=== PATIENT | female | born 1970 | race Hispanic/Latino ===

== ENCOUNTER 2017-12-14 13:56 | Emergency (ER) | payer OTHER, SELFPAY ==
[2017-12-14 14:25] LABS: APPEARANCE,URINE Clear (CLEAR); BILIRUBIN,URINE Negative (NEGATIVE); COLOR,URINE Yellow (YELLOW); GLUCOSE, URINE (UA) Negative (NEGATIVE); KETONES,URINE Negative (NEGATIVE); LEUKOCYTE ESTERASE ,URINE Negative (NEGATIVE); NITRATE,URINE Negative (NEGATIVE); OCCULT BLOOD,URINE Negative (NEGATIVE); PH,URINE 5.5 (5.0-8.0); PROTEIN,URINE Negative (NEGATIVE)
[2017-12-14 14:32] LABS: EOSINOPHILS % (AUTO) 2.2 % (0.0-8.0); HEMATOCRIT 37.4 % (36-48); LYMPHOCYTES % (AUTO) 30.1 % (21.0-51.0); MEAN CORPUSCULAR HEMOGLOBIN 28.7 pg (27.0-33.0); MEAN CORPUSCULAR HGB CONC 33.4 g/dL (32.0-36.0); MEAN CORPUSCULAR VOLUME 85.9 fL (79-99); MONOCYTES % (AUTO) 7.2 % (3.0-13.0); NEUTROPHILS % (AUTO) 59.5 % (40.0-77.0); PLATELET COUNT (AUTO) 244 K/uL (130-400); RED BLOOD CELL COUNT(AUTO) 4.36 MIL/uL (4.00-5.50); RED CELL DISTRIBUTION WIDTH 13.5 % (11.0-15.5); WHITE BLOOD COUNT (AUTO) 7.4 K/uL (4.8-10.8)
[2017-12-14 14:39] LABS: CREATININE 0.6 mg/dL (0.5-1.5); POTASSIUM 3.4 mmol/L (3.5-5.1)
[2017-12-14 14:44] LABS: ALBUMIN 3.3 g/dL (3.5-5.0); BILIRUBIN,TOTAL 0.2 mg/dL (0.2-1.0); TOTAL PROTEIN, SERUM 7.1 g/dL (6.0-8.3)
[2017-12-14] MEDS ORDERED: KETOROLAC TROMETHAMINE 30MG/ML ONE (16:09)
== END 2017-12-14 18:47 | disposition home or self-care (01) ==
LOC: EDH 13:56
DX: M54.5 Low back pain (principal); K59.00 Constipation, unspecified; Z90.710 Acquired absence of both cervix and uterus; Z87.442 Personal history of urinary calculi
CPT/HCPCS: 36415; 74176; 76856; 80053; 81003; 85025; 96374; 99285; J1885

== ENCOUNTER 2020-01-18 11:05 | Emergency (ER) | payer OTHER, SELFPAY ==
[2020-01-18] MEDS ORDERED: ASPIRIN 325 MG TABLET ONE (12:17)
[2020-01-18 12:27] LABS: BASOPHILS % (AUTO) 0.5 % (0.0-5.0); EOSINOPHILS % (AUTO) 0.6 % (0.0-8.0); HEMATOCRIT 43.2 % (36-48); LYMPHOCYTES % (AUTO) 13.7 % (21.0-51.0); MEAN CORPUSCULAR HEMOGLOBIN 28.2 pg (27.0-33.0); MEAN CORPUSCULAR HGB CONC 32.9 g/dL (32.0-36.0); MEAN CORPUSCULAR VOLUME 85.9 fL (79-99); MONOCYTES % (AUTO) 7.3 % (3.0-13.0); NEUTROPHILS % (AUTO) 77.3 % (40.0-77.0); PLATELET COUNT (AUTO) 237 K/uL (130-400); RED BLOOD CELL COUNT(AUTO) 5.03 MIL/uL (4.00-5.50); RED CELL DISTRIBUTION WIDTH 12.8 % (11.0-15.5); WHITE BLOOD COUNT (AUTO) 12.8 K/uL (4.8-10.8)
[2020-01-18 12:31] LABS: HCG,QUAL RESULT NEGATIVE (NEGATIVE)
[2020-01-18 12:39] LABS: AMPHET/METH SCREEN,URINE NEGATIVE (NEGATIVE); BARBITURATE SCREEN, URINE NEGATIVE (NEGATIVE); BENZODIAZEPINES SCREEN,URINE NEGATIVE (NEGATIVE); CANNABINOID SCREEN,URINE NEGATIVE (NEGATIVE); COCAINE SCREEN,URINE NEGATIVE (NEGATIVE); OPIATE SCREEN,URINE NEGATIVE (NEGATIVE); PHENCYCLIDINE SCREEN,URINE NEGATIVE (NEGATIVE)
[2020-01-18 12:41] LABS: CREATININE 0.8 mg/dL (0.5-1.5); POTASSIUM 3.6 mmol/L (3.5-5.1)
[2020-01-18 12:45] LABS: ALBUMIN 2.5 g/dL (3.5-5.0); BILIRUBIN,TOTAL 0.2 mg/dL (0.2-1.0); TOTAL PROTEIN, SERUM 5.4 g/dL (6.0-8.3)
[2020-01-18] MEDS ORDERED: KETOROLAC TROMETHAMINE 30MG/ML ONE (13:43)
== END 2020-01-18 15:11 | disposition home or self-care (01) ==
LOC: EDH 11:05
DX: R07.89 Other chest pain (principal); M54.6 Pain in thoracic spine; J02.9 Acute pharyngitis, unspecified; R05 Cough; Z90.710 Acquired absence of both cervix and uterus
CPT/HCPCS: 36415; 71045; 80053; 80305; 81025; 82550; 84484; 85025; 87804 ×2; 93005; 96374; 99285; J1885

== ENCOUNTER 2022-09-11 17:14 | Emergency (ER) | payer OTHER ==
[~2022-09-11] VITALS: Ht 149.9 cm; Wt 86.2 kg
[2022-09-11 18:35] LABS: APPEARANCE,URINE CLEAR (CLEAR); BILIRUBIN,URINE NEGATIVE (NEGATIVE); COLOR,URINE YELLOW (YELLOW); GLUCOSE, URINE (UA) NEGATIVE (NEGATIVE); KETONES,URINE NEGATIVE (NEGATIVE); LEUKOCYTE ESTERASE ,URINE NEGATIVE Leu/uL (NEGATIVE); NITRATE,URINE NEGATIVE (NEGATIVE); OCCULT BLOOD,URINE NEGATIVE (NEGATIVE); PH,URINE 5.5 (5.0-8.0); PROTEIN,URINE 10 mg/dL (NEGATIVE)
[2022-09-11 18:39] LABS: MUCUS,URINE MOD LPF (None Seen); SQUAMOUS EPITHELIAL CELL,UR RARE /HPF (0-2)
[2022-09-11 19:13] LABS: CREATININE 0.7 mg/dL (0.5-1.5); POTASSIUM 3.5 mmol/L (3.5-5.1)
[2022-09-11 19:14] LABS: BASOPHILS % (AUTO) 0.6 % (0.0-5.0); EOSINOPHILS % (AUTO) 1.4 % (0.0-8.0); HEMATOCRIT 37.9 % (36-48); LYMPHOCYTES % (AUTO) 16.6 % (21.0-51.0); MEAN CORPUSCULAR HEMOGLOBIN 28.9 pg (27.0-33.0); MEAN CORPUSCULAR HGB CONC 33.2 g/dL (32.0-36.0); MEAN CORPUSCULAR VOLUME 86.9 fL (79-99); NEUTROPHILS % (AUTO) 73.2 % (40.0-77.0); PLATELET COUNT (AUTO) 248 K/uL (130-400); RED BLOOD CELL COUNT(AUTO) 4.36 MIL/uL (4.00-5.50); RED CELL DISTRIBUTION WIDTH 12.6 % (11.0-15.5); WHITE BLOOD COUNT (AUTO) 8.8 K/uL (4.8-10.8)
[2022-09-11 19:19] LABS: ALBUMIN 2.8 g/dL (3.5-5.0); TOTAL PROTEIN, SERUM 6.1 g/dL (6.0-8.3)
[2022-09-11] MEDS ORDERED: GABA300C PO (20:35)
[2022-09-11 20:43] VITALS: BP 137/94
[2022-09-11] MEDS ORDERED: IBUPROFEN 800 MG TAB PO ONE (21:00)
== END 2022-09-11 21:04 | disposition home or self-care (01) ==
LOC: EDH 17:14
DX: M54.12 Radiculopathy, cervical region (principal); Z90.49 Acquired absence of other specified parts of digestive tract
CPT/HCPCS: 36415; 70450; 72125; 80053; 81001; 85025; 93005

== ENCOUNTER 2024-05-06 08:32 | Emergency (ER) | payer SELFPAY ==
[~2024-05-06] VITALS: Ht 149.9 cm; Wt 96.2 kg
[~2024-05-06 08:32] MED LIST: GABA300C PO
[2024-05-06 09:29] LABS: BASOPHILS # (AUTO) 0.07 K/uL (0.00-0.20); BASOPHILS % (AUTO) 0.8 % (0.0-5.0); EOSINOPHILS # (AUTO) 0.16 K/uL (0.00-0.70); EOSINOPHILS % (AUTO) 1.8 % (0.0-8.0); HEMATOCRIT 40.3 % (36-48); IMMATURE GRANULOCYTE ABSOLUTE 0.06 K/uL (0-1); LYMPHOCYTES # (AUTO) 1.3 K/uL (1.0-4.8); LYMPHOCYTES % (AUTO) 15.4 % (21.0-51.0); MEAN CORPUSCULAR HEMOGLOBIN 27.5 pg (27.0-33.0); MEAN CORPUSCULAR HGB CONC 31.8 g/dL (32.0-36.0); MEAN CORPUSCULAR VOLUME 86.7 fL (79-99); MONOCYTES # (AUTO) 0.7 K/uL (0.1-1.0); MONOCYTES % (AUTO) 7.6 % (3.0-13.0); NEUTROPHILS # (AUTO) 6.4 K/uL (1.8-7.7); NEUTROPHILS % (AUTO) 73.7 % (40.0-77.0); PLATELET COUNT (AUTO) 320 K/uL (130-400); RED BLOOD CELL COUNT(AUTO) 4.65 MIL/uL (4.00-5.50); RED CELL DISTRIBUTION WIDTH 13.3 % (11.0-15.5); WHITE BLOOD COUNT (AUTO) 8.7 K/uL (4.8-10.8)
[2024-05-06 09:37] LABS: CREATININE 0.7 mg/dL (0.5-1.0); POTASSIUM 4.1 mmol/L (3.5-5.1)
[2024-05-06 09:42] LABS: ALBUMIN 2.9 g/dL (3.5-5.0); BILIRUBIN,TOTAL 0.2 mg/dL (0.2-1.0); TOTAL PROTEIN, SERUM 6.6 g/dL (6.0-8.3)
[2024-05-06] MEDS: mecliZINE HCL 25 MG TABLET PO ONE ×2 (11:00→13:58)
[2024-05-06 12:52] LABS: APPEARANCE,URINE CLOUDY (CLEAR); BILIRUBIN,URINE NEGATIVE (NEGATIVE); COLOR,URINE LIGHT-YELLOW (YELLOW); GLUCOSE, URINE (UA) NEGATIVE (NEGATIVE); KETONES,URINE NEGATIVE (NEGATIVE); LEUKOCYTE ESTERASE ,URINE NEGATIVE Leu/uL (NEGATIVE); NITRATE,URINE NEGATIVE (NEGATIVE); OCCULT BLOOD,URINE NEGATIVE (NEGATIVE); PROTEIN,URINE NEGATIVE (NEGATIVE); UROBILINOGEN,URINE 0.2 mg/dL (0.2-1.0)
[2024-05-06 12:56] LABS: ADD UA MICROSCOPIC YES
[2024-05-06 12:58] LABS: BACTERIA,URINE RARE /HPF (None Seen); MUCUS,URINE RARE LPF (None Seen); SQUAMOUS EPITHELIAL CELL,UR RARE /HPF (0-2); WBC,URINE 0-1 /HPF (0-1)
[2024-05-06] MEDS ORDERED: MECL-302 PO (13:18)
[2024-05-06] MEDS ORDERED: MIDO2.5T PO (13:18)
[2024-05-06] MEDS: miDODRine HCL 5 MG TABLET PO ONE (13:56)
[2024-05-06 13:58] VITALS: BP 167/80; PULSE 70; RESP 16; TEMP 98; O2SAT 99
[2024-05-06] MEDS: LORazepam 0.5 MG TABLET PO ONE (13:58)
== END 2024-05-06 15:35 | disposition home or self-care (01) ==
LOC: EDH 08:32
DX: H81.10 Benign paroxysmal vertigo, unspecified ear (principal); I95.1 Orthostatic hypotension; R60.0 Localized edema; Z79.899 Other long term (current) drug therapy; Z90.710 Acquired absence of both cervix and uterus; Z90.49 Acquired absence of other specified parts of digestive tract; Z98.51 Tubal ligation status
CPT/HCPCS: 36415; 80053; 81001; 84484; 85025; 93005

== ENCOUNTER 2024-08-06 15:44 | Emergency (ER) | payer SELFPAY ==
[~2024-08-06] VITALS: Ht 149.9 cm; Wt 101.2 kg
[~2024-08-06 15:44] MED LIST changes: +MECL-302 PO; +MIDO2.5T4 PO
[2024-08-06] MEDS: ketOROlac 15MG/ML VIAL (15MG/ML) IM ONE (16:27)
--- NOTE | 2024-08-06 16:30 | NUR ---
PATIENT DENIES ANY CHANCE OF .
--- NOTE | 2024-08-06 17:45 | HMCIMG ---
KNEE 3VWS RT REASON: pain TECHNIQUE: 3 views were obtained. FINDINGS: There is no evidence of fracture or dislocation. There is no joint effusion. The soft tissues appear unremarkable. There is no evidence of a radiopaque foreign body. IMPRESSION: No acute findings.
[2024-08-06] MEDS: HYDROcodone/acetaMINOPHEN 10/325 MG TAB PO ONE (17:59)
--- NOTE | 2024-08-06 18:29 | ERN ---
General Chief Complaint: Knee Injury/Swelling Stated Complaint: RIGHT KNEE PAIN NO INJURY Time Seen by MD: 17:12 Time Seen by Midlevel: 17:12 Source: patient History of Present Illness Initial Comments Patient is a 53-year-old female with a past medical history of hypertension and type 2 diabetes presenting to the emergency department with right knee pain. Pain started several days ago but progressively worsened. 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 Denies any direct injury to the area. Denies any twisting injury. No other symptoms reported at this time. She does report bilateral leg swelling which has been ongoing for the last several weeks however she is currently being followed up by her primary care doctor for this. Allergies: Coded Allergies: No Known Drug Allergies (Unverified Allergy, Unknown, 09/11/22) Home Meds Active Scripts Ketorolac Tromethamine (Ketorolac Tromethamine) 10 Mg Tablet, 10 MG PO BID for 5 Days, #10 TAB Prov:IGOR CHRISTIE 08/06/24 Midodrine HCl (Midodrine HCl) 2.5 Mg Tablet, 2.5 MG PO BID, #14 TAB Prov:BEAN POON MD 05/06/24 Meclizine HCl (Meclizine HCl) 25 Mg Tablet, 25 MG PO TID, #15 TAB Prov:BEAN POON MD 05/06/24 Gabapentin (Neurontin) 300 Mg Capsule, 300 MG PO TIDP PRN for PAIN, #60 CAP Prov:MONIE TUCKER MD 09/11/22 Past Medical History Past Medical History: No Pertinent History Medical History Other: Cervical radiculopathy Past Surgical History: Hysterectomy, Cholecystectomy Surgical History Other: TUBAL LIGATION, HYSTERECTOMY Social History Social History: Negative ROS Dictation CONSTITUTIONAL: Negative except for HPI HEAD/FACE: Negative except for HPI EENT: Negative except for HPI RESPIRATORY: Negative except for HPI GASTROINTESTINAL/ABDOMINAL: Negative except for HPI GENITOURINARY: Negative except for HPI MUSCULOSKELETAL: Negative except for HPI INTEGUMENTARY: Negative except for HPI NEUROLOGICAL/PSYCH: Negative except for HPI HEMATOLOGIC/LYMPHATIC: Negative except for HPI All Systems Negative, Except as noted above. 13 point review of systems assessed and all negative except for above. Physical Exam Physical Exam Dictation Vital Signs reviewed General Appearance: Alert, oriented x 3, no acute distress, well developed, nourished. Head and Face: non-traumatic. Eyes: PERRL, pink conjunctivas, eyelid no trauma, anterior chamber with arcus senilis. Ears: Pinnas intact and no signs of trauma or erythema ear canals clear and no discharge TM no erythema Nose: No discharge, no bleeding. Oropharynx: Mouth normal, tongue pink, pharynx clear,no erythema, tonsils no exudates, no abscesses noted, mucous membrane moist Neck: Supple, non-tender, no thyromegaly, no masses, no JVD, no bruits Breast:Deferred Chest:No tenderness, no crepitus, no paradoxical movement, no retractions Lungs:Clear, well-ventilated, symmetric, no rales, no wheezing, no rhonchi, no stridor, good breath sounds bilaterally Heart: Regular rate, regular rhythm, no murmur, no gallops Vascular: 2+ pitting edema to bilateral lower extremities, worse in the right lower extremity Abdomen: Soft, positive bowel sounds, nondistended, no guarding, nontender, no rebound, no masses no hepatomegaly, no splenomegaly, no Gómez's sign, no hernias. Rectal: Deferred Genital: Deferred Neurological: Normal speech, motor function intact, sensory function intact Musculoskeletal: Neck nontender, full range of motion, back nontender, full range of motion, Extremities: nontender, full range of motion Skin: Color pink, dry, no turgor, no rash, no lacerations, no abrasions, no contusions. Lymphatic: Deferred MDM MDM: Patient is a 53-year-old female with a past medical history of hypertension and type 2 diabetes presenting to the emergency department with right knee pain. Pain started several days ago but progressively worsened. 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 Denies any direct injury to the area. Denies any twisting injury. No other symptoms reported at this time. She does report bilateral leg swelling which has been ongoing for the last several weeks however she is currently being followed up by her primary care doctor for this. Differential diagnosis: Right knee strain, DVT, lin cysts, knee effusion There are no social concerns with this patient. Prescription drug management Prescriptions will include: Toradol Medical management and examination interpretation discussions were had by me with other qualified healthcare professionals as indicated for the patient's care. ED Course Orders Procedure Category Date Status Time Knee 3vws Rt RAD 08/06/24 Resulted 16:19 Ketorolac PHA 08/06/24 Complete Tromethamine 15mg/Ml 16:30 Hydrocodone/Apap PHA 08/06/24 Complete 10/325 Tab ([place] 10) 18:00 Us Venous Doppler US 08/06/24 Resulted Unilateral 17:56 Current Medications Medications (Trade) Dose Ordered Sig/Richard Route PRN Reason Start Time Stop Time Status Last Admin Dose Admin Acetaminophen/ Hydrocodone Bitart (NORco 10) 1 tab ONCE ONCE PO 08/06/24 18:00 08/06/24 18:01 DC 08/06/24 17:59 Ketorolac Tromethamine (toRADol) 15 mg ONCE ONCE IM 08/06/24 16:30 08/06/24 16:31 DC 08/06/24 16:27 Vital Signs Date Time Temp Pulse Resp B/P (MAP) Pulse Ox O2 Delivery O2 Flow Rate FiO2 08/06/24 18:46 98.2 72 20 118/61 97 Room Air* 0 21 08/06/24 18:00 70 18 125/63 98 Room Air* 0 08/06/24 16:09 98.8 74 20 135/56 98 Room Air* 0 08/06/24 15:45 99.0 90 20 129/59 98 Room Air 0 [place] [id number] [place] [id number] IMAGING REPORT Signed PATIENT: MONROE ATKINSON MR#: [id number] : 1970 SEX: F AGE: 53 LOCATION: [facility] ORDER 1620 STATUS: REG ER REPORT#: [id number] SERVICE 1619 REASON: pain ORDERING PHYSICIAN: ROSA QUIROGA DO PROCEDURE: KNEE 3V RT - KNEE 3VWS RT KNEE 3VWS RT REASON: pain TECHNIQUE: 3 views were obtained. FINDINGS: There is no evidence of fracture or dislocation. There is no joint effusion. The soft tissues appear unremarkable. There is no evidence of a radiopaque foreign body. IMPRESSION: No acute findings. DICTATED BY: HEMA CHAMPION MD DATE: 08/06/241741 ELECTRONICALLY SIGNED BY: HEMA CHAMPION MD DATE: 08/06/241744 [address] [address] IMAGING REPORT Signed PATIENT: MONROE ATKINSON MR#: [id number] : 1970 SEX: F AGE: 53 LOCATION: [facility] ORDER 56 STATUS: [facility] ER REPORT#: [id number] SERVICE 55 REASON: rle swelling ORDERING PHYSICIAN: IGOR CHRISTIE PROCEDURE: VENOUS UNI - US VENOUS DOPPLER UNILATERAL US VENOUS DOPPLER UNILATERAL REASON: rle swelling COMPARISON: None Technique: Right venous doppler ultrasound was performed with spectral analysis and color flow imaging technique. FINDINGS: There is a normal appearance of the common femoral, deep femoral, the profunda femoris and popliteal veins. Proximal calf veins appear normal as well. There is normal response to compression and augmentation. There is no evidence of deep venous thrombosis. IMPRESSION: Normal right lower extremity venous Doppler ultrasound. DICTATED BY: HEMA CHAMPION MD DATE: 08/06/241907 ELECTRONICALLY SIGNED BY: HEMA CHAMPION MD DATE: 08/06/241911 DX & DISP Disposition: Discharge Departure Impression: Primary Impression: Right knee pain Condition: Stable Scripts Ketorolac Tromethamine (Ketorolac Tromethamine) 10 Mg Tablet 10 MG PO BID for 5 Days, #10 TAB Prov: IGOR CHRISTIE 08/06/24 Additional Instructions: Your right knee x-ray does not show any acute fracture or any other injury. Your right lower extremity ultrasound does not show any evidence of a blood clot. You will need to follow up with your primary care doctor in 2-3 days for repeat evaluation. Return to the ER for any new or worsening symptoms Referrals: ASIA BLACK MD (PCP) I have reviewed the case, and I agree with, Diagnosis and Plan I performed the substantive portion of the visit. I have reviewed and personally made and approve the management plan that is documented in the note by myself or the SARAH. I acknowledge for responsibility for the patient's management plan. IGOR CHRISTIE Aug 06, 2024 18:29
[2024-08-06 18:46] VITALS: BP 118/61; PULSE 72; RESP 20; TEMP 98.2; O2SAT 97
[2024-08-06] MEDS ORDERED: KETO10TA2 PO (18:48)
--- NOTE | 2024-08-06 19:12 | HMCIMG ---
US VENOUS DOPPLER UNILATERAL REASON: rle swelling COMPARISON: None Technique: Right venous doppler ultrasound was performed with spectral analysis and color flow imaging technique. FINDINGS: There is a normal appearance of the common femoral, deep femoral, the profunda femoris and popliteal veins. Proximal calf veins appear normal as well. There is normal response to compression and augmentation. There is no evidence of deep venous thrombosis. IMPRESSION: Normal right lower extremity venous Doppler ultrasound.
== END 2024-08-06 19:01 | disposition home or self-care (01) ==
LOC: EDH 15:44
DX: M25.561 Pain in right knee (principal); M79.604 Pain in right leg; E11.9 Type 2 diabetes mellitus without complications; I10 Essential (primary) hypertension; Z90.49 Acquired absence of other specified parts of digestive tract; Z90.710 Acquired absence of both cervix and uterus; X58.XXXA Exposure to other specified factors, initial encounter; Y93.89 Activity, other specified; Y92.89 Other specified places as the place of occurrence of the external cause; Y99.8 Other external cause status
CPT/HCPCS: 99285; 93971; 73562; 96372; J1885